=== PATIENT | female | born 1995 | race Caucasian/White ===

== ENCOUNTER 2022-08-14 08:40 | Inpatient (IN) | payer BC ==
[~2022-08-14 08:40] MED LIST: Bupivacaine 0.25% HCL 30 ML VIAL ONE; Bupivacaine HCl 0.5%/Epinephrine 1:200,000/PF 30 ml Vial ONE
[2022-08-14] MEDS ORDERED: Promethazine HCl 25 MG/ML VIAL IM PRN ×2 (08:55→15:25)
[2022-08-14] MEDS ORDERED: Acetaminophen 500 MG TAB PO PRN (08:55)
[2022-08-14] MEDS ORDERED: Ibuprofen 800 MG TAB PO PRN (08:55)
[2022-08-14] MEDS ORDERED: Misoprostol 200 MCG TAB PR PRN (08:55)
[2022-08-14] MEDS ORDERED: hydrALAZINE 20 MG/ML VIAL SLOW IVP PRN ×2 (08:55→17:18)
[2022-08-14] MEDS ORDERED: Docusate 100 MG CAP PO PRN (08:55)
[2022-08-14] MEDS ORDERED: Ondansetron PF 4 MG/2 ML Vial IVP PRN ×3 (08:55→17:18)
[2022-08-14] MEDS ORDERED: Lidocaine 1% (PF) 30 ML VIAL SC PRN (08:55)
[2022-08-14] MEDS ORDERED: Diphenoxylate HCl/Atropine Tablet PO PRN ×2 (08:55)
[2022-08-14] MEDS ORDERED: Butorphanol Tartrate 1 MG/ML VIAL SLOW IVP PRN (08:55)
[2022-08-14] MEDS ORDERED: HYDROcodone/Acetaminophen 5/325 mg Tablet PO PRN ×3 (08:55→17:18)
[2022-08-14] MEDS ORDERED: NS w/ Oxytocin 30 units 500 ML IV SCH ×3 (09:00→17:30)
[2022-08-14 09:23] VITALS: BMI 25.5
[2022-08-14] MEDS: Lactated Ringer's 1,000 ML IV SCH (09:30)
[2022-08-14 09:40] LABS: Mean Corpuscular Hemoglobin 30.8 pg (27.0-33.0); Mean Corpuscular Volume 87.9 fl (81.6-98.3); Mean Platelet Volume 11.8 fl (7.4-10.4); Platelet Count 144 10x3/uL (150-450); RBC Distribution Width 12.5 % (11.5-14.5); White Blood Cell (WBC) Count 6.3 10x3/uL (3.5-10.5)
[2022-08-14] MEDS ORDERED: Penicillin G Potassium 5 MILL.UNITS VIAL ONE (09:42)
[2022-08-14] MEDS ORDERED: Penicillin G Potassium 5 MILL.UNITS in Sodium Chloride 0.9% 100 ML IVPB SCH (10:00)
[2022-08-14 10:28] LABS: HBSAg Index 0.13 S/CO (0-0.99); HIV (1/2) Antibody/Antigen Non-Reactive (NonReactive); HIV 1/2 INDEX 0.05 S/CO (<1.00); Hep B Surf Ag Non-Reactive S/CO (NonReactive)
[2022-08-14 10:29] LABS: Syphilis Antibody Nonreactive (Nonreactive); Syphilis Antibody Index 0.03 S/CO (<1.00 Non-Reactive)
[2022-08-14 10:48] LABS: SARS-CoV-2 NAA Rapid Test DETECTED (NotDetected)
[2022-08-14] MEDS: Penicillin G 2.5 MILL.units 2.5 MILL.UNITS in Premix Bag 1 BAG IVPB SCH (13:34)
[2022-08-14] MEDS ORDERED: Moisturizing Cream (Eucerin) 113 GM JAR TOP PRN (15:25)
[2022-08-14] MEDS ORDERED: Lactated Ringer's 500 ML IV PRN (15:25)
[2022-08-14] MEDS ORDERED: ePHEDrine Sulfate 50 MG/10 ML VIAL SLOW IVP PRN (15:25)
[2022-08-14] MEDS ORDERED: Acetaminophen 325 MG TAB PO PRN (15:25)
[2022-08-14] MEDS ORDERED: Naloxone HCl 0.4 mg/ml Vial IVP PRN ×2 (15:25)
[2022-08-14] MEDS ORDERED: diphenhydrAMINE 50 MG/ML VIAL IVP PRN (15:25)
[2022-08-14] MEDS ORDERED: Fentanyl 2 mcg/Bup 0.1% Cadd 100 ML ONE (15:26)
[2022-08-14] MEDS ORDERED: Fentanyl 2 mcg/Bupivacaine 0.1% Cassette 100 ML EPIDURAL SCH (15:30)
[2022-08-14] MEDS ORDERED: Communication Order-Pharmacy FS SCH (15:30)
[2022-08-14] MEDS ORDERED: Milk Of Magnesia 30 ML UDCUP PO PRN (17:18)
[2022-08-14] MEDS ORDERED: Lanolin Ointment 7 GM TUBE TOP PRN (17:18)
[2022-08-14] MEDS ORDERED: diphenhydrAMINE 25 MG CAP PO PRN (17:18)
[2022-08-14] MEDS ORDERED: Misoprostol 200 MCG TAB VAG PRN (17:18)
[2022-08-14] MEDS ORDERED: Preparation H Ointment 28 GM TUBE PR PRN (17:18)
[2022-08-14] MEDS ORDERED: Benzocaine-Menthol 82.5 ML CAN TOP PRN (17:18)
[2022-08-14] MEDS ORDERED: Bisacodyl 10 MG SUPP PR PRN (17:18)
[2022-08-14] MEDS ORDERED: Boostrix 0.5 ML (Tdap) VIAL (>/=7 yrs of age) IM ONE (17:18)
[2022-08-14] MEDS ORDERED: Zolpidem Tartrate 5 MG TAB PO PRN (17:18)
[2022-08-14] MEDS: Docusate 100 MG CAP PO SCH (21:24)
[2022-08-14] MEDS: Ibuprofen 800 MG TAB PO SCH (21:24)
[2022-08-15] MEDS: HYDROcodone/Acetaminophen 5/325 mg Tablet PO PRN ×2 (01:33→13:00)
[2022-08-15] MEDS: Lactated Ringer's 1,000 ML IV SCH (03:26)
[2022-08-15] MEDS: Penicillin G 2.5 MILL.units 2.5 MILL.UNITS in Premix Bag 1 BAG IVPB SCH (03:26)
[2022-08-15 05:19] LABS: Hemoglobin 10.6 g/dL (12.0-15.5); Mean Corpuscular HGB CONC 34.9 g/dL (32.0-36.0); Mean Corpuscular Hemoglobin 31.3 pg (27.0-33.0); Mean Corpuscular Volume 89.7 fl (81.6-98.3); Mean Platelet Volume 12.1 fl (7.4-10.4); Platelet Count 133 10x3/uL (150-450); RBC Distribution Width 12.4 % (11.5-14.5); Red Blood Cell (RBC) Count 3.39 10x6/uL (3.90-5.03); White Blood Cell (WBC) Count 7.5 10x3/uL (3.5-10.5)
[2022-08-15] MEDS: Ibuprofen 800 MG TAB PO SCH ×2 (06:04→12:55)
[2022-08-15] MEDS: Docusate 100 MG CAP PO SCH (08:22)
[2022-08-15] MEDS: Ferrous Sulfate 325 MG TAB PO SCH ×2 (08:23→18:37)
[2022-08-15] MEDS ORDERED: Prenatal Vitamin 1 TAB PO SCH (09:00)
[2022-08-15 13:31] VITALS: BP 111/71; TEMP 98.1
== END 2022-08-15 19:00 | disposition home or self-care (01) | DRG 805 ==
LOC: CSHLD 08:40 → CSHPP 08-15 06:30
PROVIDERS: ADMIT Obstetrics & Gynecology; ATTEND Obstetrics & Gynecology
PROC: 10E0XZZ Delivery of Products of Conception, External Approach (ICD-10-PCS; principal; 2022-08-14)
PROC: 8E0ZXY6 Isolation (ICD-10-PCS; 2022-08-14)
PROC: 3E033VJ Introduction of Other Hormone into Peripheral Vein, Percutaneous Approach (ICD-10-PCS; 2022-08-14)
DX: O87.8 Other venous complications in the puerperium (principal); U07.1 COVID-19; Z37.0 Single live birth; O98.52 Other viral diseases complicating childbirth; Z3A.38 38 weeks gestation of pregnancy; O99.824 Streptococcus B carrier state complicating childbirth; D64.9 Anemia, unspecified; O99.02 Anemia complicating childbirth
CPT/HCPCS: 36415; 85027; 86780; 86850; 86900; 86901; 87340; 87389; J2540; J2590; J3490; J7120; S0020; U0002